=== PATIENT | female | born 1990 | race African-American/Black ===

== ENCOUNTER 2023-06-04 07:41 | Inpatient (IN) | payer OTHER, SELFPAY ==
[2023-06-04] VITALS (46 sets, daily range): BP systolic 91–153; BP diastolic 41–111; PULSE 37–95; RESP 9–27; TEMP 35.9–36.4; O2SAT 98–100; BMI 28.0
--- NOTE | ~2023-06-04 | US_ITS ---
EXAMINATION: US venous doppler [facility] DATE: 06/04/2023 15:48 INDICATION: Left lower limb deep vein thrombosis. TECHNIQUE: Grayscale ultrasound images without and with compression and Doppler ultrasound images of the left lower extremity veins were obtained. COMPARISON: None. FINDINGS: The visualized portions of left common femoral vein, profunda (deep) femoral vein, femoral vein, popl iteal vein, peroneal veins, posterior tibial veins, and greater saphenous vein outflow are patent. IMPRESSION: 1. No deep venous thrombosis. Reviewed, dictated and finalized at location A. NCE INTERPRETER
--- NOTE | ~2023-06-04 | CT_ITS ---
EXAMINATION: CTA chest PE protocol DATE: 06/04/2023 11:17 INDICATION: Syncope. TECHNIQUE: Computed tomography angiography (CTA) of the chest was performed with 100 mL Omnipaque-350 intravenous contrast timed to evaluate the pulmonary arteries. Coronal maximum intensity projection 3D-reconstructions were created by the technologist. Automated exposure control and iterative reconst ruction technique were employed. The dose-length product was 596.36 mGy-cm. COMPARISON: None. FINDINGS: The lungs demonstrate minimal atelectasis. No pleural effusion. The heart size is normal. N o pericardial effusion. There is no pulmonary embolus. There is mild thoracic spondylosis. IMPRESSION: 1. No pulmonary emboli. Reviewed, dictated and finalized at location A. BING MACHINE OPERATOR IMPRESSION: 1. No pulmonary emboli.
--- NOTE | 2023-06-04 08:00 | ECG_ITS ---
Measurements Intervals [place] Rate: 48 P: 54 ME: 146 QRS: 24 QRSD: 83 T: 37 QT: 438 QTc: 393 Interpretive Statements SINUS BRADYCARDIA NONSPECIFIC T-WAVE ABNORMALITY ABNORMAL ECG NO PREVIOUS ECG AVAILABLE FOR COMPARISON Electronically Signed On 06-04-2023 12:39:48 EQUINE VET by Jackson Edmonds M.D.
[2023-06-04 08:40] LABS: Basophils Percent Auto 0.7 % (0.2-1.2); Eosinophils Absolute Auto 0.1 K/mm3 (0-0.3); Eosinophils Percent Auto 1.2 % (0-4.4); Hemoglobin 10.4 g/dL (12.0-15.0); Lymphocytes Absolute Auto 2.38 K/mm3 (0.9-3.2); Lymphocytes Percent Auto 56.4 % (18.3-44.2); Mean Corpuscular HGB Conc 30.6 g/dl (32-36); Mean Corpuscular Hemoglobin 24.7 pg (26-34); Mean Corpuscular Volume 80.8 fl (80-100); Mean Platelet Volume 9.2 fl (7.4-10.4); Monocytes Absolute Auto 0.3 K/mm3 (0.1-0.6); Monocytes Percent Auto 6.2 % (2.6-8.5); Neutrophils Absolute Auto 1.5 K/mm3 (1.3-6.7); Neutrophils Percent Auto 35.5 % (45.5-73.1); Platelet Count Result 341 k/mm3 (150-375); Red Blood Count 4.21 M/mm3 (4.2-5.4); White Blood Count 4.2 K/mm3 (4.5-10.0)
--- NOTE | 2023-06-04 08:40 | ED.SYNCOPE ---
HPI - Syncope General Chief Complaint: Syncope Stated Complaint: near syncopy Time Seen by Provider: 06/04/23 08:01 History of Present Illness HPI narrative: Patient is a 33-year-old female with history of opiate use disorder, currently in inpatient treatment, recent diagnosis of DVT here with a near syncopal episode. This morning she woke up feeling okay, went to get something to drink and felt her legs buckling underneath her. She lowered herself to the ground, waited 10 minutes, tried again and continued to feel weak. Her blood pressure was checked, it was found to be low and she was brought in for evaluation. Patient notes that she has been in in [facility] for fentanyl use, has been there for the last 4 days. She notes she was started on Lucemyra during this treatment period and has never been on this before and is unsure if it causing her any of her symptoms. She denies any nausea or vomiting. She has been eating and drinking okay. she does note a history of feeling lightheaded when she stands up quickly in the past. Of note she Was diagnosed with a left lower extremity DVT about 2 weeks ago at [facility]. She was taking either Eliquis or Xarelto at that time, took it for about a week and she discontinued this on her own. She notes that the swelling in her leg is significantly improved. She denies any chest pain or shortness of breath. Related Data Allergies Allergy/AdvReac Type Severity Reaction Status Date / Time No Known Allergies Allergy Unverified 05/09/14 12:33 Review of Systems Review of Systems: All systems reviewed & are unremarkable except as noted in HPI and below PMFSH Social History Social History Smoking status: Current every day smoker Exam Narrative: GENERAL: Well-appearing, well-nourished, and in no acute distress. HEAD: Normocephalic, atraumatic. EYES: PERRLA and EOMI. ENT: Nares clear. Mucous membranes moist. NECK: Supple. CHEST: Clear to auscultation. No respiratory distress. HEART: Regular rate and rhythm. Normal peripheral pulses. ABDOMEN: Soft, nontender, nondistended. EXTREMITIES: Normal range of motion. No lower extremity edema, no calf tenderness. SKIN: Warm, dry, no rash. NEURO: No focal deficits. Alert and oriented x3. PSYCH: Normal mood and affect. Course Course Emergency Course: Chart review performed. Patient here with low blood pressure and near syncopal episode. She is reportedly on medication for detox from fentanyl. No prior visits in our system. Patient seen evaluated, nontoxic appearing. Differentials include medication reaction, suspect some orthostatic hypotension may be at play as well. She is non adherent to her blood thinners with recent diagnosis of DVT. Will do a CTA to evaluate for possible PE. IVF ordered. Lab work reviewed my blood cell 4.2, hemoglobin of 10.4, not bleeding, denies any symptoms of infection. CMP within normal limits. CTA negative for PE. She is occasionally dropping her HR into the high 30s while here in the ED. Suspect this is likely due to the introduction of her new medication for withdrawal. Will plan to admit for bradycardia and near syncope. Spoke with Ibis Avalos from Cardiology, will be on consult, Spoke with Massiel from hospitalist team, accepts patient, will place in IMU given bradycardia. Vital Signs Vital signs: Vital Signs Temperature 97.6 F 06/04/23 07:42 Pulse Rate 53 L 06/04/23 07:42 Respiratory Rate 14 06/04/23 07:42 Blood Pressure 91/59 L 06/04/23 07:42 Pulse Oximetry 98 06/04/23 07:42 Oxygen Delivery Room Air 06/04/23 07:42 Temperature 97.6 F 06/04/23 07:42 Pulse Rate 48 L 06/04/23 10:47 Respiratory Rate 16 06/04/23 10:47 Blood Pressure 112/77 06/04/23 10:47 Pulse Oximetry 100 06/04/23 10:47 Oxygen Delivery Room Air 06/04/23 07:42 MDM - Syncope Lab Data 06/04/23 08:28 06/04/23 08:28 Labs: Lab Results
[2023-06-04 08:52] LABS: Alanine Aminotransferase 15 U/L (6-35); Albumin Level 3.6 g/dL (3.5-5.1); Alkaline Phosphatase 75 U/L (38-126); Anion Gap 5 mmol/L (8-16); Aspartate Amino Transferase 30 U/L (14-36); Bilirubin,Total 0.4 mg/dL (0.2-1.3); Blood Urea Nitrogen 8 mg/dL (7-17); Calcium 9.3 mg/dL (8.4-10.2); Carbon Dioxide 29 mmol/L (22-30); Chloride 104 mmol/L (98-107); Estimated CRCL calculation 86 ml/min; Estimated Glomerular Filt Rate > 60; Glucose 105 mg/dL (65-110); Potassium 3.7 mmol/L (3.4-5.0); Sodium 138 mmol/L (137-145)
[2023-06-04] MEDS: LACTATED RINGERS 1,000 ML 999 ML IV CONT ×2 (09:06→13:05)
[2023-06-04 09:19] LABS: Glucose Point of Care 100 mg/dl (65-105)
[2023-06-04 12:17] LABS: NT Pro B Type Natriuretic Pept 287 pg/mL (19.9-100); Troponin I < 0.012 ng/mL (0.000-0.034)
--- NOTE | 2023-06-04 15:13 | PM.IMHP ---
H&P: HPI History of Present Illness Date/Time: 06/04/23 15:45 Chief Complaint: Near syncope. Narrative: This is a 33-year-old female with a recent diagnosis of deep venous thrombosis and opioid addiction currently undergoing inpatient treatment presented to the emergency department via EMS from [facility] for evaluation after a near syncopal episode. The patient provides the following history. She felt fine when she got up this morning but not long prior to arrival she got up to get something to drink when she felt her legs buckling underneath of her with feelings of weakness and lightheadedness. She lowered herself to the ground, waited 10 minutes, and tried to get up again but the symptoms returned. She was found to be hypotensive and bradycardic and was sent in for evaluation. She was previously on Suboxone for her fentanyl abuse and was recently started on Lucemyra within the last several days. She has been eating and drinking okay and denies nausea, vomiting, and diarrhea. She also denies chest pain, pleuritic pain, palpitations, and shortness of breath. Of note, she took anticoagulation for only about a week for a reported left leg DVT diagnosed last month and she discontinued this on her own. She has not had any pain or swelling in that leg since. In the ED: She was afebrile on arrival. Initial blood pressures were in the 90s over 50s systolic but have improved with 2 L IV fluid. She has been persistently bradycardic in the upper 30s to low 50s. CMP and CBC were pretty unremarkable with the only outlier is being a a WBC count of 4.2, hemoglobin 10.4, proBNP 287. TSH was normal. CTA of the chest showed no evidence of pulmonary emboli. She is being admitted in this setting for close monitoring and further workup. Review of Systems Review of Systems: Twelve systems were reviewed and are negative except for as per HPI. [facility] Past Medical History Medical History (Updated 06/04/23 @ 21:01 by Massiel Gallegos PA-C) Deep venous thrombosis (07/2021) Depression with anxiety Opiate addiction Single seizure Surgical History Surgical History (Updated 06/04/23 @ 21:01 by Massiel Gallegos PA-C) History of section History of surgery on arm Family History Family History (Updated 06/04/23 @ 21:01 by Massiel Gallegos PA-C) Other Family history non-contributory Social History Social History (Updated 06/04/23 @ 21:02 by Massiel Gallegos PA-C) Social History: Surrogate medical decision maker: Kyung Marshall, significant other. Code status: Full code. Smoking packs per day: 1.5 Smoking cigarettes per day: 30.0 Years smoked: 20 Smoking pack-years: 30.00 Smoking status: Current every day smoker Tobacco type: e-cigarettes/vaping Alcohol intake: never Substance use: current Substance use type: IV drugs Other substance usage details: Fentanyl Last use: 05/31/23 Do You Feel Safe in your Home?: Yes Lack of Transportation: No Lack of Food: Never True Current Housing: I Have Housing Concerned About Future Housing: No Difficulty Paying Gas/Electric Bills: No Difficulty Paying for Meds: No Currently Unemployed: No Education: Decline to Answer Difficulty w/ Childcare or Family Care: No Spiritual care concerns: No Meds Home Medications and Allergies Home Medications Medication Instructions Recorded Confirmed Type gabapentin 300 mg capsule 300 mg PO BID 06/04/23 06/04/23 History promethazine 25 mg tablet 25 mg PO BID 06/04/23 06/04/23 History tizanidine 4 mg tablet 4 mg PO TID PRN Muscle Spasm 06/04/23 06/04/23 History Allergies Allergy/AdvReac Type Severity Reaction Status Date / Time No Known Allergies Allergy Unverified 05/09/14 12:33 Vital Signs Vital Signs - 24 hr 06/04/23 07:42 06/04/23 07:42 06/04/23 08:01 Temperature 97.6 F Pulse Rate 53 L 41 L Respiratory Rate 14 17 Blood Pressure 91/59 L 107/73 Pulse Oximetry 98 100 Oxygen Deliv
--- NOTE | 2023-06-04 20:02 | ADMGEN ---
This patient, Tati Calles, was admitted to IMU Room 209-01. Patient/family oriented to hospital policies and general routines including ID bracelet, bed and alarms, visiting hours, pain management, procedures, bathroom and other care routines, personal items, smoking policy, room service/diet, and visiting hours. Information on how to activate the Rapid Response Team has been discussed. Patient/Family are encouraged to report perceived risks to care and to ask questions if they do not understand what they are told or what they should do.
[2023-06-04] MEDS: NICOTINE (*PBKC) 21 MG PATCH 1 PATCH TRANSDERM (21:02)
[2023-06-04] MEDS: LORazepam INJ (*CRX) 2 MG/ML VIAL 1 MG IV PUSH (21:03)
[2023-06-04] MEDS: traZODone HCL 50 MG TABLET PO (23:51)
[2023-06-05] VITALS (12 sets, daily range): BP systolic 97–120; BP diastolic 50–75; PULSE 42–65; RESP 12–20; TEMP 36.2–37; O2SAT 99–100
[2023-06-05] MEDS: NICOTINE (*PBKC) 21 MG PATCH 1 PATCH TRANSDERM (09:36)
[2023-06-05] MEDS: GABAPENTIN 300 MG CAPSULE PO (09:37)
[2023-06-05] MEDS: LORazepam INJ (*CRX) 2 MG/ML VIAL 1 MG IV PUSH (09:39)
[2023-06-05 10:08] LABS: Anion Gap 6 mmol/L (8-16); Blood Urea Nitrogen 5 mg/dL (7-17); Calcium 9.1 mg/dL (8.4-10.2); Carbon Dioxide 27 mmol/L (22-30); Chloride 104 mmol/L (98-107); Estimated CRCL calculation 87 ml/min; Estimated Glomerular Filt Rate > 60; Glucose 97 mg/dL (65-110); Magnesium 1.9 mg/dL (1.6-2.3); Potassium 4.1 mmol/L (3.4-5.0); Sodium 137 mmol/L (137-145)
[2023-06-05] MEDS: PROMETHAZINE HCL 25 MG TABLET PO (10:43)
--- NOTE | 2023-06-05 11:53 | PM.IMPN ---
Progress Note: A&P Assessment and Plan (1) Bradycardia: Code(s): R00.1 - Bradycardia, unspecified Status: Acute Assessment and Plan: Known side effect of Lucemyra. Will hold and place on allergy list. (2) Near syncope: Code(s): R55 - Syncope and collapse Status: Acute Assessment and Plan: Suspected to be due to bradycardia and hypotension related to Lucemyra at rehab. (3) Opiate addiction: Code(s): F11.20 - Opioid dependence, uncomplicated Status: Acute Assessment and Plan: Patient will go back to inpatient rehab at [facility] after discharge Time Spent With Patient Time with patient: 15 - 25 minutes Subjective Date/time seen: 06/05/23 11:53 Interval history: Patient admitted for near syncope and symptomatic bradycardia with low blood pressure after starting Lucemyra at inpatient drug rehab. Patient was started on this medication for fentanyl addiction. She nearly passed out when she got up to get a glass of water. Patient is feeling better after IV fluid rehydration but she still remains bradycardic in 40s this morning. Cardiology was consulted and has not yet seen the patient. We will continue patient on telemetry monitoring at this time. DVT assessment was negative. Patient reports that she is hoping to receive Vivitrol shot at rehab and is very committed to stopping fentanyl use. Review of Systems Review of Systems: All systems reviewed & are unremarkable except as noted in HPI and below Exam Narrative: GENERAL: Well-appearing, well-nourished, and in no acute distress. HEAD: Normocephalic, atraumatic. ENT:? Mucous membranes moist. CHEST: Clear to auscultation.? No respiratory distress. HEART: Bradycardic rate and regular rhythm. ? Normal peripheral pulses. Sinus bradycardia rate of 48 bedside telemetry monitoring per my own interpretation ABDOMEN: Soft, nontender, nondistended. EXTREMITIES: Normal range of motion. No peripheral edema. SKIN: Warm dry normal color NEURO: Alert and oriented x3. PSYCH: Normal mood and affect Objective Data Vital Signs Vital Signs: Vital Signs - 24 hr 06/04/23 12:00 06/04/23 12:15 06/04/23 12:17 Temperature Pulse Rate 46 L 39 L 53 L Respiratory Rate 13 16 22 H Blood Pressure 141/75 H Pulse Oximetry 100 Oxygen Delivery 06/04/23 12:30 06/04/23 12:32 06/04/23 12:46 Temperature Pulse Rate 43 L 37 L Respiratory Rate 16 13 Blood Pressure 141/76 H Pulse Oximetry 100 99 Oxygen Delivery 06/04/23 13:00 06/04/23 13:10 06/04/23 13:15 Temperature Pulse Rate 38 L 39 L Respiratory Rate 9 L 10 L Blood Pressure 149/89 H Pulse Oximetry 100 100 100 Oxygen Delivery 06/04/23 13:17 06/04/23 13:30 06/04/23 13:32 Temperature Pulse Rate 39 L 43 L 39 L Respiratory Rate 15 12 10 L Blood Pressure 138/111 H 139/87 Pulse Oximetry 99 100 99 Oxygen Delivery 06/04/23 13:47 06/04/23 15:22 06/04/23 14:30 Temperature Pulse Rate 42 L 40 L 44 L Respiratory Rate 19 12 16 Blood Pressure 140/77 153/79 H 140/77 Pulse Oximetry 100 100 99 Oxygen Delivery 06/04/23 15:55 06/04/23 16:00 06/04/23 16:31 Temperature Pulse Rate 41 L 40 L 42 L Respiratory Rate 12 14 16 Blood Pressure 118/78 136/79 138/69 Pulse Oximetry 100 100 100 Oxygen Delivery 06/04/23 17:00 06/04/23 18:20 06/04/23 17:30 Temperature Pulse Rate 42 L 58 L 48 L Respiratory Rate 16 20 16 Blood Pressure 105/65 131/77 116/75 Pulse Oximetry 100 100 100 Oxygen Delivery 06/04/23 19:11 06/04/23 20:09 06/04/23 20:13 Temperature 35.9 C L 36.2 C L Pulse Rate 95 47 L Respiratory Rate 18 18 Blood Pressure 108/73 101/41 L 101/41 L Pulse Oximetry 100 100 Oxygen Delivery 06/04/23 20:13 06/04/23 20:00 06/04/23 20:00 Temperature Pulse Rate 47 L 58 L Respiratory Rate 18 Blood Pressure 96/62 L Pulse Oximetry 100 Oxygen Delivery Room Air 06/04/23 22:00
--- NOTE | 2023-06-05 13:41 | PM.CNCAR ---
Assessment and Plan Assessment and plan (1) Bradycardia: Code(s): R00.1 - Bradycardia, unspecified Status: Acute (2) Near syncope: Code(s): R55 - Syncope and collapse Status: Acute Plan This is a 33-year-old woman without any prior cardiac history who appears to have had a adverse reaction to Lucemyra as she was admitted with symptomatic bradycardia and hypotension which are known adverse reactions to this agent. The medication has obviously been stopped and her heart rate and blood pressure have normalized. I would cardiac physical exam is also unremarkable. I believe at this time there is no further need for ongoing hospitalization as far as her cardiovascular status is concerned. The hospitalists are planning to discharge her back to her the rehab facility which I believe is appropriate Timothy Celeste MD [facility] History of Present Illness History of Present Illness Consult date/time: 06/05/23 13:41 Reason For Visit: Bradycardia,Near Syncope Narrative: This is a 33-year-old woman I am seeing at the request of the hospitalist because of symptomatic bradycardia. Patient is unknown to me prior to this encounter and she does not have any previous known cardiac problems. She works as a [employer]IPE [employer] IN[employer]ER and interestingly apparently has problem with opiate addiction and has been using fentanyl. She currently was in a narcotic rehab program and was being prescribed Lucemyra for this reason. Yesterday she was brought to the hospital because she became presyncopal her heart rate was in the high 30s and she was hypotensive. Bradycardia and hypotension are known potential side effects of this agent. The drug has been stopped and on telemetry now she is in sinus rhythm with a heart rate in the 80s. The patient feels well at this time and offers no other complaints. She states that she was fairly confident this was a side effect of her medication because she has never had symptoms like this in the past she denies any prior history of syncope near syncope lightheadedness or dizziness. She has no other medical problems and otherwise has been in good health. 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 Other than sinus bradycardia her 12 lead electrocardiogram looks normal. Review of Systems Constitutional: Constitutional: Reports no additional constitutional complaints Eyes: Eyes: Reports no additional eye complaints ENT: Reports system reviewed and no additional complaints, except as documented Cardiovascular: Cardiovascular: Reports no additional cardiovascular complaints Respiratory: Respiratory: Reports no additional respiratory complaints Gastrointestinal: Gastrointestinal: Reports no additional gastrointestinal complaints Musculoskeletal: Musculoskeletal: Reports no additional musculoskeletal complaints Integumentary/Breasts: Skin/Breast: Reports system reviewed and no additional complaints, except as docu Neurologic: Reports as per HPI Psychiatric: Psychiatric: Reports as per HPI Endocrine: Endocrine: Reports no additional endocrine complaints Hematologic/Lymphatic: Hematologic/Lymphatic: Reports no additional hematologic/lymphatic complaints Allergic/Immunologic: Allergic/Immunologic: Reports no additional allergic/immunologic complaints [facility] Past Medical History Medical History (Updated 06/04/23 @ 21:01 by Massiel Gallegos PA-C) Deep venous thrombosis (07/2021) Depression with anxiety Opiate addiction Single seizure Surgical History Surgical History (Updated 06/04/23 @ 21:01 by Massiel Gallegos PA-C) History of section History of surgery on arm Family History Family History Other Family history non-contributory Social History Social History (Updated 06/04/23 @ 21:02 by Massiel Gallegos PA-C) Social History: Surrogate medical decision maker: Kyung Marshall, significant other. Code status: Full code. Smoking
--- NOTE | 2023-06-05 13:47 | PM.DS ---
DS: Admitting Diagnosis Discharge Date 06/05/2023 Admitting Diagnosis Near syncope, bradycardia, opioid addiction DS: Discharge Diagnosis Discharge Diagnosis (1) Bradycardia: Code(s): R00.1 - Bradycardia, unspecified Status: Acute (2) Near syncope: Code(s): R55 - Syncope and collapse Status: Acute (3) Opiate addiction: Code(s): F11.20 - Opioid dependence, uncomplicated Status: Acute DS: Summary Hospital Course Hospital Course: This is a 33 year-old female patient who was admitted to the hospital after an episode of near syncope with bradycardia and hypotension. She was started on Lucemyra while at inpatient rehab for fentanyl addiction. After couple days she began to get lightheaded and dizzy. Prior to coming to the hospital she tried to get up to get a glass of water and virtually passed out. She was found to be bradycardic and hypotensive which are known potential side effects this new medication. She was brought to the emergency department and admitted for further observation. Vital signs improved after fluid bolus. Heart rate improved without intervention. Cardiology saw patient and felt comfortable with discharge back to rehab. Patient instructed not to take that medication any longer. Nicotine patch also prescribed for smoking cessation. Patient reports a prior history DVT in lower extremity for which she was prescribed anticoagulation but quit taking after 1 week. Venous Dopplers were completed on this hospitalization and negative. Chest CTA was also negative. Time spent discussing smoking cessation with patient: 3 to 10 minutes Status at Discharge Cognitive/behavioral status at discharge: Awake alert oriented and pleasant Functional status at discharge: independent ambulation Overall status at discharge: patient is back to baseline Time Spent with Patient Time attestation: Total time spent providing and/or coordinating discharge services: 35 minutes Time spent: Greater than 30 minutes Exam Narrative: GENERAL: Well-appearing, well-nourished, and in no acute distress. HEAD: Normocephalic, atraumatic. ENT:? Mucous membranes moist. CHEST: Clear to auscultation.? No respiratory distress. HEART: Regular rate and regular rhythm. ? Normal peripheral pulses. Sinus rhythm rate of 80 by bedside telemetry by my own interpretation ABDOMEN: Soft, nontender, nondistended. EXTREMITIES: Normal range of motion. No peripheral edema. SKIN: Warm dry normal color NEURO: Alert and oriented x3. PSYCH: Normal mood and affect DS: Data Data Completed and Pending Completed studies during hospitalization: Chest CTA, venous Doppler Labs on day of discharge: Labs from last 24 hours 06/05/23 06/04/23 09:50 08:28 Sodium 137 Potassium 4.1 Chloride 104 Carbon Dioxide 27 Anion Gap 6 L BUN 5 L Creatinine 0.90 Estim Creat Clear Calc 87 Estimated GFR > 60 Glucose 97 Calcium 9.1 Magnesium 1.9 TSH 1.080 Discharge Plan Discharge Attending physician on discharge: Eduardo Miller Consulting providers: Jackson Edmonds Discharging Clinician: Doc Wong Anticipated Discharge Date/Time: 06/05/23 13:46 Patient Disposition: Home, Self-Care Activity: as tolerated Diet: as tolerated and regular Discharge Instructions: Stop Lucemyra and use alternate means to overcome withdrawal symptoms in rehab May discharge back to inpatient rehab. Patient Instructions: Antibiotic Form, How to Stop Smoking (DC), How to Stop Smoking (GEN) Stand Alone Forms: General Discharge Information Follow-up/Referrals: UNKNOWN,DOCTOR [Primary Care Provider] - Follow Up with Primary Dr Discharge Medications: New nicotine [Nicoderm CQ] 21 mg/24 hr Patch 24 Hour 1 patch transdermal DAILY Qty: 30 0RF Continued tizanidine 4 mg tablet 4 mg PO TID PRN (Reason: Muscle Spasm) promethazine 25 mg tablet 25 mg PO BID joanie
== END 2023-06-05 14:53 | disposition home or self-care (01) | DRG 207 ==
LOC: ANHED 15:11 → ANHIMU 18:27
PROVIDERS: Physician Assistant; Admitting Provider Hospitalist; Emergency Provider Student in an Organized Health Care Education/Training Program; Visit Provider Nurse Practitioner
DX: I95.2 Hypotension due to drugs (principal); R00.1 Bradycardia, unspecified; R55 Syncope and collapse; T44.6X5A Adverse effect of alpha-adrenoreceptor antagonists, initial encounter; F41.8 Other specified anxiety disorders; F11.20 Opioid dependence, uncomplicated; F17.290 Nicotine dependence, other tobacco product, uncomplicated; Z86.718 Personal history of other venous thrombosis and embolism
CPT/HCPCS: 36415; 71275; 80048; 80053; 81025; 82948; 83735; 83880; 84443; 84484; 85025; 93005; 93971; 96360; 96361; 99285; A9270; J2060; J7120; Q9967